=== PATIENT | female | born 1965 | race Caucasian/White ===

== ENCOUNTER 2020-08-31 10:44 | Emergency (ER) | payer OTHER, SELFPAY ==
--- NOTE | ~2020-08-31 | CT_ITS ---
EXAMINATION: CT HEAD WITHOUT CONTRAST CLINICAL INFORMATION: Dizziness, nausea, vomiting. COMPARISON: None TECHNIQUE: Contiguous axial imaging was performed from the skull base to vertex without intravenous administration of contrast. Additional 2-D coronal and sagittal reformatted images are generated on the CT workstation and uploaded to PACS. This CT examination was performed using dose optimization techniques as appropriate, variously including the following: *Automated exposure control *Adjustment of mA and/or kV according to patient size (this includes techniques or standardized protocols for targeted exams where dose is matched to indication/reason for exam; i.e. extremities or head) *Use of iterative reconstruction technique DLP: 652 mGy-cm FINDINGS: There is no intracranial hemorrhage, hematoma, or extra-axial fluid collection. The ventricles are normal in size. There is no hydrocephalus, edema, or mass effect. The laurent-white matter differentiation appears symmetric. There is no visible acute territorial infarct or mass lesion. The calvarium appears intact. There is no pneumocephalus or orbital emphysema. The visualized sinuses and middle ears and mastoid air cells show no significant mucosal thickening. There are no air-fluid levels. CT/CT head/brain wo con IMPRESSION: Unremarkable noncontrast CT head.
[2020-08-31 11:08] VITALS: BP 128/85; PULSE 73; RESP 16; TEMP 36.5; O2SAT 100; BMI 25.7
[2020-08-31] MEDS: Meclizine HCl 25 MG TABLET PO (12:52)
[2020-08-31] MEDS: 0.9 % Sodium Chloride 1,000 ML 999 ML IV (12:52)
[2020-08-31] MEDS: ondansetron HCL 4 MG/2 ML VIAL IVPUSH (12:52)
[2020-08-31 13:02] LABS: Basophils Percent Auto 0.2 % (0-2); Eosinophils Percent Auto 0.1 % (0-4); Hematocrit 43.7 % (37-47); Hemoglobin 14.5 g/dl (12.0-16.0); Imm Gran Abs Auto 0.07 X10*3/uL (0.00-0.03); Imm Gran Pct Auto 0.4 % (0.0-0.4); Lymphocytes Absolute Auto 0.5 X10*3/uL (1.2-4.9); Lymphocytes Percent Auto 2.8 % (20-40); MANUAL DIFF FLAG SCAN; Mean Corpuscular HGB Conc 33.2 g/dl (31.0-35.0); Mean Corpuscular Hemoglobin 28.2 pg (27.0-33.0); Mean Corpuscular Volume 84.9 fL (80-98); Mean Platelet Volume 9.7 fL (9.4-12.3); Monocytes Percent Auto 5.9 % (2-11); Neutrophils Absolute Auto 15.3 X10*3/uL (2.0-8.3); Neutrophils Percent Auto 90.6 % (45-73); Platelet Count 291 X10*3/uL (160-400); Red Blood Count 5.15 X10*6/uL (4.20-5.50); SCAN SMEAR FLAG 1; White Blood Count 16.9 X10*3/uL (4.8-10.8)
[2020-08-31 13:19] LABS: Alanine Aminotransferase 17 U/L (0-31); Albumin Level 4.6 g/dL (3.5-5.0); Alkaline Phosphatase 83 U/L (39-117); Anion Gap 11 (12-20); Aspartate Amino Transferase 19 U/L (5-31); Bilirubin Total 0.5 mg/dL (0.0-1.0); Blood Urea Nitrogen 13 mg/dL (9-16); Calcium 9.2 mg/dL (8.4-10.2); Carbon Dioxide 31 mmol/L (22-29); Chloride 101 mmol/L (96-108); Creatinine Clr Calc Pharmacy 80.6; Estimated Glomerular Filt Rate > 60; Glucose Random 94 mg/dL (60-115); Lipase 57 U/L (8-78); Potassium 4.1 mmol/L (3.3-5.1); Sodium 139 mmol/L (135-145); Total Protein 7.2 g/dL (6.5-8.0)
[2020-08-31 13:22] LABS: SLIDE REVIEW VERIFIED
[2020-08-31 13:24] LABS: Troponin-I High Sensitivity < 3.5 ng/L (<3.5-17.0)
[2020-08-31 14:59] VITALS: BP 116/75; PULSE 68; RESP 16; TEMP 36.8; O2SAT 96
--- NOTE | 2020-08-31 15:22 | ED.GENADULT ---
HPI - General Adult General Chief complaint: Nausea/Vomiting/Diarrhea Stated complaint: VOMITING,DIZZY SINCE 9:30 Time Seen by Provider: 08/31/20 10:56 Source: patient Mode of arrival: EMS Limitations: no limitations History of Present Illness HPI narrative: 54-year-old female who presents emergency department for evaluation sudden onset of dizziness. The patient states that 1 week prior she had an upset stomach and did not feel well and stayed home from work. She states that 3 days prior she noted dizziness. She describes the dizziness as a lightheaded sensation. The dizziness would be worse in the morning and would seem to be exacerbated by position change. The dizziness was episodic and she will get 3 episodes a day. She states that today she was playing basketball and felt slightly dizzy. She was then on a Zoom meeting at 9:25 a.m. when the room started spinning. She developed nausea and vomited multiple times. An ambulance was called and the patient was brought to the emergency department for evaluation. The patient states that she has not had any chest pain or shortness of breath but she has noted some dyspnea on exertion when she walks upstairs and is caring object. She denied fever, chills, abdominal pain, change in bowel movements. The patient has not tested positive for COVID-19 and she has not had the COVID-19 vaccine. Related Data Allergies Allergy/AdvReac Type Severity Reaction Status Date / Time naproxen Allergy Hives Verified 08/31/20 11:11 Review of Systems Review of Systems: Yes all other systems are reviewed and are negative [facility] Past Medical History [facility] Narrative: Patient has a history of hyperlipidemia. She states that there is a family history of early heart disease, her mother, father and 2 brothers all had coronary artery disease before the age of 50. 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 She denies tobacco use, she has 2 drinks per week, she denies drug use. Medical History (Updated 08/31/20 @ 15:24 by Adelfo Mccracken MD) Anxiety delivery delivered HLD (hyperlipidemia) Social History Social History Alcohol intake: current Alcohol intake frequency: a few times a week Alcohol type: wine Smoking Status: Never smoker Use of substances other than those prescribed or required for medical reasons: No Advance Directives: No Advance Directives Information Provided: No Physical Exam Vital Signs: Vital Signs: Last Vital Signs Temp 98.3 F 08/31/20 14:59 Pulse 68 08/31/20 14:59 Resp 16 08/31/20 14:59 BP 116/75 08/31/20 14:59 Pulse Ox 96 08/31/20 14:59 Body Mass Index 25.7 Const: General: cooperative and healthy appearing Orientation/consciousness: oriented to person and oriented to place Limitations: no limitations HENMT: Head: Yes normal to inspection, Yes normocephalic and Yes atraumatic Ears: external ears normal General nose exam: Normal external nose present Face and sinus: Yes normal facial exam Mouth: Normal oral and palatal mucosa present Throat: Yes posterior oropharynx normal Eyes: Periorbital: periorbital findings normal Eyelids: Yes eyelids normal Conjunctivae: conjunctivae normal Sclerae: sclerae normal Corneas: corneas normal Pupils: Equal, round and reactive pupils present EOM: Nystagmus present Direct Ophthalmoscopy: normal light reflex Neck: Neck: Yes full ROM, Yes no lymphadenopathy, Yes no meningeal signs, Yes trachea midline and Yes supple Chest: Chest palpation & inspection: normal inspection of the chest and normal palpation of entire chest wall Resp: Effort & Inspection: normal respiratory effort and able to speak in complete sentences Auscultation: clear to auscultation bilaterally Cardio: Rate: regular rate Rhythm: regular rhythm Heart sounds: S1 normal heart sound present, S2 normal heart sound present and no murmurs GI: Inspection: Yes normal to inspection Palpation (GI): Soft to palpation, nontender, no guarding, not rigid and No hepatosplenomegaly present : General: Yes no CVA tenderness Back/Spine/Pelvis: Back: no CVA tenderness Cervical Spine: normal cervical lordosis Thoracic/Lumbar Spine: thoracic and lumbar spine normal to inspection Skin: Lesions: no lesions Rashes: no rashes Wounds: no wounds Neuro: Other: Positive Flavio's with head turning to the left General: oriented to person, oriented to place and no meningeal signs Cranial nerves: Yes CN's II-XII intact bilaterally, Yes Equal, round and reactive pupils present and Yes Nystagmus present Cognition (Neuro): normal cognition Motor exam (neuro): 5/5 motor strength present throughout Coordination: [id number] test normal and iexe-kg-[id number] test normal Extrem: General: Yes normal to inspection and Yes full ROM Psych: Appearance: well kempt Mental Status: mental status grossly normal Speech and movement: Normal speech and movement present Affect: normal affect Attitude: cooperative Thought process: Normal thought process present Thought content: Normal thought content present Course Course Course Narrative: 54-year-old female who presents emergency department for evaluation of sudden onset of room spinning dizziness which began just prior to arrival, associated with nausea and vomiting. The patient had 3 episodes per day over the last 2 days which were minor but associated with position change. Physical examination did reveal nystagmus and inducible vertigo with position change. The patient's laboratory evaluation revealed an elevated WBC which I suspect is secondary to stress, otherwise her labs were normal. CT scan of the brain was normal. The patient was treated with Zofran 4 mg IV and meclizine 25 mg orally with improvement of her symptoms. I did discuss these findings with the patient and the patient will be discharged home with printed and verbal instructions. She was advised to take meclizine 25 mg 3 times a day for the next week as needed for dizziness. Medical Decision Making Lab Data Result diagrams: 08/31/20 12:49 08/31/20 12:49 Labs: Lab Results 08/31/20 08/31/20 08/31/20 Range/Units 12:49 12:49 12:49 WBC 16.9 H (4.8-10.8) X10*3/uL RBC 5.15 (4.20-5.50) X10*6/uL Hgb 14.5 (12.0-16.0) g/dl Hct 43.7 (37-47) % MCV 84.9 (80-98) fL MCH 28.2 (27.0-33.0) pg MCHC 33.2 (31.0-35.0) g/dl RDW 12.0 (11.0-16.0) % Plt Count 291 (160-400) X10*3/uL MPV 9.7 (9.4-12.3) fL Immature Gran % (Auto) 0.4 (0.0-0.4) % Neut % (Auto) 90.6 H (45-73) % Lymph % (Auto) 2.8 L (20-40) % [place] % (Auto) 5.9 (2-11) % Eos % (Auto) 0.1 (0-4) % Baso % (Auto) 0.2 (0-2) % Lymph # (Auto) 0.5 L (1.2-4.9) X10*3/uL [place] # (Auto) 1.0 (0.1-1.2) X10*3/uL Eos # (Auto) 0.0 (0.0-0.4) X10*3/uL Baso # (Auto) 0.0 (0.0-0.2) X10*3/uL Abs Immat Gran (auto) 0.07 H (0.00-0.03) X10*3/uL Absolute Neuts (auto) 15.3 H (2.0-8.3) X10*3/uL Absolute Nucleated RBC 0.000 (0.0-0.012) X10*3/uL Nucleated RBC % (auto) 0.0 (0.0-0.2) /100WBC Smear Tech's Comments VERIFIED Sodium 139 (135-145) mmol/L Potassium 4.1 (3.3-5.1) mmol/L Chloride 101 (96-108) mmol/L Carbon Dioxide 31 H (22-29) mmol/L Anion Gap 11 L (12-20) BUN 13 (9-16) mg/dL Creatinine 0.84 (0.5-1.4) mg/dL Estim Creat Clear Calc 80.6 Estimated GFR > 60 Random Glucose 94 (60-115) mg/dL Calcium 9.2 (8.4-10.2) mg/dL Total Bilirubin 0.5 (0.0-1.0) mg/dL AST 19 (5-31) U/L ALT 17 (0-31) U/L Alkaline Phosphatase 83 (39-117) U/L Troponin I High Sens < 3.5 (<3.5-17.0) ng/L Total Protein 7.2 (6.5-8.0) g/dL Albumin 4.6 (3.5-5.0) g/dL Lipase 57 (8-78) U/L Discharge Plan Discharge Clinical Impression: Benign positional vertigo Qualifiers: Laterality: unspecified laterality Qualified Code(s): H81.10 - Benign paroxysmal vertigo, unspecified ear Patient Disposition: Home, Self-Care Instructions: Benign Paroxysmal Positional Vertigo (ED) Additional Instructions: The CT scan of the brain was normal. Your EKG was unremarkable. Your laboratory evaluation revealed an elevated white blood cell count which is a stress reaction but otherwise your blood work was unremarkable. Your presentation is consistent with benign positional vertigo. Take Dramamine (meclizine) 25 mg pills, 1 pill every 6 hours for the next 3-4 days to help with her dizziness. After that you can take 25 mg every 6 hours as needed for dizziness. Vertigo can sometimes last 1-[address] if you were dizzy. Follow-up with your doctor in 2 days. Please return to the emergency department if your symptoms get worse or if you develop any symptoms that are concerning to you.
== END 2020-08-31 15:45 | disposition home or self-care (01) ==
PROVIDERS: Emergency Provider Emergency Medicine Emergency Medical Services; PCP Nurse Practitioner Family
DX: H81.10 Benign paroxysmal vertigo, unspecified ear (principal); E78.5 Hyperlipidemia, unspecified
CPT/HCPCS: 36415; 70450; 80053; 83690; 84484; 85025; 93005; 96361; 96374; 99284; J2405

== ENCOUNTER → 2023-09-01 08:35 | Outpatient (BNVA) | payer OTHER, SELFPAY | PROVIDERS: PCP Nurse Practitioner Family; Visit Provider Physician Assistant Medical | DX: M77.11 Lateral epicondylitis, right elbow (principal); S46.811A Strain of other muscles, fascia and tendons at shoulder and upper arm level, right arm, initial encounter; Y04.2XXA Assault by strike against or bumped into by another person, initial encounter | CPT/HCPCS: 99203 ==

== ENCOUNTER → 2023-09-04 13:08 | Outpatient (BNVA) | payer OTHER, SELFPAY | PROVIDERS: PCP Nurse Practitioner Family; Visit Provider Physician Assistant Medical | DX: M77.11 Lateral epicondylitis, right elbow (principal); S46.811A Strain of other muscles, fascia and tendons at shoulder and upper arm level, right arm, initial encounter; Y04.2XXA Assault by strike against or bumped into by another person, initial encounter | CPT/HCPCS: 99213 ==

== ENCOUNTER → 2023-09-23 14:55 | Outpatient (BNVA) | payer OTHER, SELFPAY | PROVIDERS: PCP Nurse Practitioner Family; Visit Provider Physician Assistant Medical | DX: M77.11 Lateral epicondylitis, right elbow (principal); S46.811D Strain of other muscles, fascia and tendons at shoulder and upper arm level, right arm, subsequent encounter; Y04.2XXD Assault by strike against or bumped into by another person, subsequent encounter | CPT/HCPCS: 99213 ==